=== PATIENT | male | born 1960 | race Caucasian/White ===

== ENCOUNTER → 2017-08-06 16:10 | Outpatient (CLI) | payer OTHER, SELFPAY ==
--- NOTE | 2017-08-06 09:50 | COLBX_PTH ---
PATIENT: LORE MALDONADO LOC: [facility] U#:[id number] AGE/SX: 64/M ROOM: RE08/06/[address]: Dr. Phani Cannon MD : 1960 BED: DIS: SPEC #: [id number] RECD: 08/06/17 15:35 STATUS: JACLYN BLANCA #: [id number] RADHA: 08/06/17 09:[address]: Phani Cannon DEPT: SURGICAL PATHOLOGY RECD BY: Donis Sanchez ENTERED: 08/09/17 10:38 SP TYPE: COLON BX OTHR DR: BAO Tissues: A - Sigmoid colon biopsy B - COLON BIOPSY Procedures: Surgery Specimen Level IV HEADER OPERATION: Colonoscopy with polypectomy PRE-OP DIAGNOSIS: History polyps TISSUE SUBMITTED: A ? Sigmoid polyp, rule out adenoma, B - Hepatic flexure, rule out adenoma MICROSCOPIC DIAGNOSIS A. Sigmoid colon polyp, biopsy: Fecal debris and rare benign epithelial and fibrous tissue. B. Colon at hepatic flexure, biopsy: Fragments of hyperplastic polyp. AM:siena 08/10/17 COMMENT There is no evidence of adenoma. Clinical correlation is suggested. MICROSCOPIC DESCRIPTION Slides are reviewed. GROSS DESCRIPTION A - Received in fixative is one container labeled with the patient's name and designated sigmoid polyp biopsy. The specimen consists of multiple irregular fragments of light silva soft tissue mixed with fecal material that in aggregate measure 2 x 0.2 x 0.1 cm. The specimen is totally submitted in one cassette. B - Received in fixative is one container labeled with the patient's name and designated hepatic flexure polyp. The specimen consists of multiple irregular fragments of light silva soft tissue that in aggregate measure 0.5 x 0.3 x 0.1 cm. The specimen is totally submitted in one cassette. / SJ:siena 08/09/17 TC:5 CPT: 05470 x2
== END ==
PROVIDERS: Visit Provider Internal Medicine Gastroenterology
DX: K63.5 Polyp of colon (principal); Z86.010 Personal history of colon polyps
CPT/HCPCS: 88305

== ENCOUNTER → 2024-05-29 | Outpatient (CLI) | payer OTHER, SELFPAY ==
--- NOTE | 2024-05-26 | IMM_PTH ---
PATIENT: LORE MALDONADO LOC: [facility] U#:[id number] AGE/SX: 63/M ROOM: RE05/29/[address]: Dr. 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 Localization is made via biotin free immunoperoxidase method. Appropriate controls are performed and reacted as expected. Results on target cell population are indicated in the following table: RESULTS: ANTIBODY / CLONE RESULT AE1-3 (AE1/AE3/PCK26) negative Vimentin (V9) positive CD34 (QBEnd-10) positive, focal Actin (1A4) negative Myosin (simms1) negative Desmin (CE-R-11) negative S-100 (4C4.9) positive Neurofil (2F11) negative CD56 (123C3.D5) positive CALRET (polyclonal) positive, focal AVELINO (E29) positive, capsule Ki-67 (30-9) positive, low These tests were developed and their performance characteristics determined by [facility]. They may not have been cleared or approved by the [place]. Food and Drug Administration. The FDA has determined that such clearance or approval is not necessary. The above immunohistochemical/dualISH markers are ordered and reviewed by the Pathologist. INTERPRETATION: Soft tissue of left wrist, excision: Consistent with Schwannoma. AM.mr 06/02/2024
--- NOTE | 2024-05-26 11:30 | MASS_PTH ---
PATIENT: LORE MALDONADO LOC: [facility]#:[id number] AGE/SX: 63/M ROOM: RE05/29/[address]: Dr. 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 See comment. AM 05/31/2024 COMMENT Immunohistochemistry ([id number]) supports the above diagnosis. MICROSCOPIC DESCRIPTION Slides are reviewed. GROSS DESCRIPTION Received in fixative is one container labeled with the patient's name and designated Left wrist mass. The specimen consists of multiple irregular fragments of silva-white soft tissue measuring in aggregate 3.0 x 2.0 x 0.2cm. The specimen is submitted in its entirety in one cassette. AM. 05/30/2024 TC:1 CPT:65424
== END | disposition home or self-care (01) ==
LOC: LAB 15:23 → LABSPEC 15:24
PROVIDERS: Referring Provider Student in an Organized Health Care Education/Training Program; Visit Provider Student in an Organized Health Care Education/Training Program
DX: G56.22 Lesion of ulnar nerve, left upper limb (principal)
CPT/HCPCS: 88305; 88341; 88342

== ENCOUNTER 2024-09-06 16:30 | Outpatient (RCR) | payer OTHER, SELFPAY ==
--- NOTE | 2024-07-18 16:16 | HP.OTEVAL_ITS ---
Patient's Visit Information Visit Information Visit Information: LORE MALDONADO is a 63 year old M, referred to Occupational Therapy by Dr. Jose L Toscano DO, with a diagnosis of left ulnar nerve lesion. Date of Evaluation: 07/17/24 Occupational Therapist: HERBERT Bermeo/Shameka, CHT Subjective Subjective: This 63 year old male was seen for OT eval with dx of left Ulnar nerve lesion. pt states he had about 5 years or move of left LF and RF issues. cramping and pain before his sx. pt states his nerve conduction test was in 2023. Pt states results showed delayed motor response. pt states he has had numbness since 2023. pt states Dr removed a mass out of his palm of his hand. pt states fingers of left hand LF and RF feels numb. pt states he is unsure on how the recovery should go with this type of sx. and would like to get strength back to return to his ADLs and IADLS. ROM ROM Comments: pt demo with no adduction of LF pt states this has been since sx. pt demo full composite tight fist noted slight claw hand deformity with pt resting hand on table top ( unaffected hand flat) Strength Seam Press Operator: right 90# left 50# Lateral Pinch: right 20# left 8# Tripod Pinch: right 20# left 4# Strength Comments: pt demo with a decrease in left stationary engineer strength Sensation Thumb: right 2.83 left 2.83 interpretation normal sensation Index: right 2.83 left 2.83 interpretation normal sensation Middle: right 2.83 left 2.83 interpretation normal sensation Ring: right 2.83 left 2.83 interpretation normal sensation Little: right 2.83 left 2.83 interpretation normal sensation Sensation Comments: pt testing with normal sensation but still has feelings of numbness Quick DASH-Disab of Arm,Shoulder& Hand Quick DASH Score: 21.6650 Goals Goal:: pt will demo a increase in left stationary engineer strength by 20# or greater to increase pts IND. with ADLs and IADLs by d/c pt will demo a increase in left lateral and tripod pinch strength by 6# or greater by d.c to increase pts ind. with ADLS. Goal:: pt will demo full LF adduction to increase pts ind placing hands in pocket by d.c Goal:: pt will demo understanding of scar mtg by end of 2nd session to decrease risk of scar adhesions. pt will demo understanding of using elastomer at night to assist in softening hypertrophic scar. Rehabilitation General Assessment: pt arrives 8 weeks and 3 days s/p from wrist level ulnar nerve decompression. pt demo with sight claw hand deformity, inability to adduct left LF and weakness of left hand limiting pts functional use of left hand with ADLs and IADLs. Pt would benefit from skilled OT services 2x week for 8 weeks to increase pts strength- ed. pt on scar mtg. nerve glide to increase pts maximal rehab potential. Today therapist ed. pt on use of tevin tape of left LF to avoid catching his left finger- as well as not stretching adductor so when nerve returns muscle can initiate- pt demo understanding- therapist ed. pt on use of elastomer at night to assist in softening his hypertrophic scar- therapist ed. pt on scar mobilization as well desensitization. pt demo understanding and agree to POC. Rehabilitation Potential: Good Anticipated Interventions Anticipated Interventions: Strengthening, Scar Care, Massage, Desensitization, Sensory Retraining, Modalities, Orthoses, Joint Protection/Energy Conservation, Ergonomic Education, Dynamic Sitting Balance, Education re assistive Equipment and Education re Diagnosis Visit Plan Frequency: 1-2x /Week Duration: 4 Weeks General Plan: scar mtg US ulnar nerve glide strengthening ed.pt on peripheral nerve return following prolonged compression possible fabrication of ulnar nerve ( anti-claw orthosis) TEXT: Thank you for the opportunity to evaluate your patient. For Medicare and Medicare HMO plans, please review the plan of care and approve it. It will need to be FAXED BACK to us at [phone] for Medicare purposes. Please let me know if there are questions or concerns regarding this plan of care. Physician Signature: Date:
--- NOTE | 2024-09-06 16:53 | HP.OTDCSUM_ITS ---
Discharge Summary D/C Summary: It has been my pleasure to treat LORE MALDONADO under orders from Dr. Jose L Toscano, , for the diagnosis of left ulnar nerve lesion for a total of 14 visit(s). Please see the following information for a summary of their discharge status. Overall Improvement % Improvement: 80 Objective Objective/Function: L hand promotions assistant sales marketing strength 60# increase from 50# L hand lateral pinch 10# increase from 5# L hand tripod pinch 8# increase from 5# pt demo the ability to adduct LF to RF at initial eval pt was unable to adduct LF to RF- pt testing at 2.83 sensation ( normal ) sensation but continues to feel numb or different therapist ed. pt that nerves can take up to 12 months to heal. pt demo understanding- pt states he is ready to cont.with a HEP Goals Patient Goals: Regain Strength and Use Hand/Wrist/Arm Normally Again Goal:: pt will demo a increase in left promotions assistant sales marketing strength by 20# or greater to increase pts IND. with ADLs and IADLs by d/c (goal met) pt will demo a increase in left lateral and tripod pinch strength by 6# or greater by d.c to increase pts ind. with ADLS. (goal met) Goal:: pt will demo full LF adduction to increase pts ind placing hands in pocket by d.c (Goal met) Goal:: pt will demo understanding of scar mtg by end of 2nd session to decrease risk of scar adhesions. pt will demo understanding of using elastomer at night to assist in softening hypertrophic scar. (goal met) Plan Plan: D/C with HEP D/C Information Discharge Comments: pt was seen for 14 OT sessions following Ulnar nerve release. pt made great gains in ROM and strength. pt still demo with ulnar nerve hyper flexion with pinch but strength is improving- pt is performing HEP and still scar mtg. pt has met OT goals . pt agrees to d.c with HEP. d/c sentence: If there are questions or concerns regarding this patient's occupational therapy, please fell free to call me at [phone]. Thank you for the referral of this patient. Sincerely, Maribell Reis, OTR/L, CHT
== END 2024-09-06 19:00 | disposition home or self-care (01) ==
LOC: OT 16:30
PROVIDERS: Referring Provider Student in an Organized Health Care Education/Training Program; Visit Provider Student in an Organized Health Care Education/Training Program
DX: G56.22 Lesion of ulnar nerve, left upper limb (principal); R22.32 Localized swelling, mass and lump, left upper limb
CPT/HCPCS: 97035; 97110; 97140; 97166; 97530